=== PATIENT | male | born 1965 | race Two or more races ===

== ENCOUNTER 2024-08-28 21:04 | Emergency (ER) | payer MEDICAID, OTHER ==
[~2024-08-28] VITALS: Ht 170.2 cm; Wt 68.1 kg
--- NOTE | 2024-08-28 21:37 | ED.PDOC ---
History of Present Illness HPI Comments 60 year old male came to ER via EMS for headaches. Patient has been having throbbing frontal headaches, non radiating for the past 2 days that progressively worsened today. Noted to be nauseated but denies any vomiting, denies any chest pains or shortness of breath. Denies any dizziness, slurring of speech or unilateral weakness/ numbness. Patient took Tramadol but offered no relief. Blood pressure upon arrival was 174/103 mmHg patient has past medical history of thyroid issues. Denied history of hypertension, blood thinner use. No head injury. He stated this is the worst headache that he has ever had. It is the headache began in worsened gradually. Denies sudden onset of headache. Chief Complaint: Headache Time Seen by MD: 21:27 Reviewed Notes: Nurses Notes Allergies: Coded Allergies: Bacitracin (Verified Allergy, Unknown, 08/28/24) Neomycin (Verified Allergy, Unknown, 08/28/24) Polymyxin B (Verified Allergy, Unknown, 08/28/24) Information Source: Patient Mode of Arrival: Ambulatory Severity: Moderate Review of Systems REVIEW OF SYSTEMS: No fever, no chills, or fatigue HEENT: No sore throat, no earache, no congestion, no neck pain. Cardiac: No chest pain. No palpitations. Lungs: No shortness of breath, no cough. GI: No nausea, no vomiting, no diarrhea, no constipation, no abdominal pain : No dysuria, frequency, or urgency. No hematuria. Musculoskeletal: No joint pain , no joint swelling, no extremity edema. Skin: No rash, no itching. Neuro: (+) headache, no dizziness, no weakness Vital Signs Vital Signs Date Time Temp Pulse Resp B/P (MAP) Pulse Ox O2 Delivery O2 Flow Rate FiO2 08/29/24 00:15 98.9 78 15 129/68 (88) 95 98.9 08/28/24 23:40 Room Air* 0 21 Physical Exam General: Awake, alert and oriented. No acute distress. Skin: Skin in warm, dry and intact. Appropriate color for ethnicity. Nailbeds pink with no cyanosis. HEENT: The head is normocephalic and atraumatic. Conjunctivae are clear without exudates or hemorrhage. Sclera is non-icteric. EOM are intact. PERRLA No signs of nystagmus. Eyelids are normal in appearance without swelling or lesions. Oral mucosa is pink and moist Neck: The neck is supple with normal range of motion. No JVD. Cardiac: Heart rate and rhythm are normal. No murmurs, gallops, or rubs are auscultated. Respiratory: No signs of respiratory distress. Lung sounds are clear in all lobes bilaterally without rales, ronchi, or wheezes. Abdominal: Abdomen is soft, non-tender without distention. Bowel sounds are present and normoactive in all four quadrants. Extremities: Upper and lower extremities are atraumatic in appearance without deformity or edema. Neurological: The patient is awake, alert and oriented to person, place, and time with normal speech. Speech is clear. There is no facial asymmetry. Sensation symmetric in the face. Patient reports chronic dullness to sensation in the upper extremity. Normal veqbhd-do-hsmy test bilaterally. Minimally Psychiatric: Appropriate mood and affect. Good judgement and insight. No visual or auditory hallucinations. Past Medical History Past Medical History (Other): Chronic pain syndrome Surgical History: Denies all surgeries Family History Family History: Reviewed,noncontributory to illness Social History Smoker: Non-Smoker Alcohol: Denies ETOH Use Drugs: Denies Drug Use Lives In: Home Was a procedure done? Was a procedure done?: No Differential Dx Considerations may include: Anemia, electrolyte imbalance, migraine headaches, CVA, intracranial hemorrhage, TIA, hypertensive urgency X-Ray, Labs, Meds, VS Vital Signs Date Time Temp Pulse Resp B/P (MAP) Pulse Ox O2 Delivery O2 Flow Rate FiO2 08/29/24 00:15 98.9 78 15 129/68 (88) 95 98.9 08/28/24 23:43 73 135/73 08/28/24 23:40 98.7 79 17 135/73 (93) 97 98.7 08/28/24 23:40 79 17 97 Room Air* 0 21 08/28/24 22:47 16 99 Room Air* 0 21 08/28/24 21:07 66 08/28/24 21:07 97.2 84 18 174/101 (125) 100 Lab Test 08/28/24 23:41 08/28/24 23:30 08/28/24 21:58 Range/Units POC Glucose 170 H 70-106 mg/dl Levetiracetam Level Pending White Blood Count 11.1 H 4.4-10.8 10^3/uL Red Blood Count 5.15 4.5-5.90 10^6/uL Hemoglobin 15.5 13.5-17.5 g/dL Hematocrit 46.6 41.0-53.0 % Mean Corpuscular Volume 90.6 80.0-100.0 fL Mean Corpuscular Hemoglobin 30.1 28.0-32.0 pg Mean Corpuscular Hemoglobin Concent 33.3 32.0-36.0 g/dL Red Cell Distribution Width 13.8 11.8-14.3 % Platelet Count 245 140-450 10^3/uL Mean Platelet Volume 9.1 6.9-10.8 fL Neutrophils (%) (Auto) 63.6 37.0-80.0 % Lymphocytes (%) (Auto) 26.2 10.0-50.0 % Monocytes (%) (Auto) 6.6 0.0-12.0 % Eosinophils (%) (Auto) 3.1 0.0-7.0 % Basophils (%) (Auto) 0.5 0.0-2.0 % Neutrophils # (Auto) 7.1 1.6-8.6 10 ^3/uL Lymphocytes # (Auto) 2.9 0.4-5.4 10 ^3/uL Monocytes # (Auto) 0.7 0-1.3 10 ^3/uL Eosinophils # (Auto) 0.3 0-0.8 10 ^3/uL Basophils # (Auto) 0.1 0-0.2 10 ^3/uL Nucleated Red Blood Cells 0.0 % Sodium Level 137 136-145 mmol/L Potassium Level 4.0 3.5-5.1 mmol/L Chloride Level 100 98-107 mmol/L Carbon Dioxide Level 27 20-31 mmol/L Anion Gap 10 5-15 Blood Urea Nitrogen 17 9-23 mg/dL Creatinine 0.91 0.700-1.30 mg/dL Glomerular Filtration Rate Calc 96 >90 mL/min BUN/Creatinine Ratio 18.7 10.0-20.0 Serum Glucose 127 H 74-106 mg/dL Calcium Level 9.7 8.7-10.4 mg/dL Magnesium Level 2.0 1.6-2.6 mg/dL Total Bilirubin 0.3 0.2-1.0 mg/dL Aspartate Amino Transferase (AST) 21 13-40 U/L Alanine Aminotransferase (ALT) 20 7-40 U/L Alkaline Phosphatase 58 46-116 U/L Total Protein 7.5 5.7-8.2 g/dL Albumin 4.5 3.2-4.8 g/dL Current Medications Medications (Trade) Dose Ordered Sig/Jero Route Start Time Stop Time Status Last Admin Sodium Chloride 1,000 ml @ 1,000 mls/hr Q1H ONCE IV 08/28/24 22:00 08/28/24 22:59 DC 08/28/24 22:29 Ketorolac Tromethamine (Toradol Injection) 30 mg ONCE ONCE IV 08/28/24 22:00 08/28/24 22:01 DC 08/28/24 22:29 Metoclopramide HCl (Reglan Injection) 10 mg ONCE ONCE IV 08/28/24 22:00 08/28/24 22:01 DC 08/28/24 22:29 Diphenhydramine HCl (Benadryl Injection) 25 mg ONCE ONCE IV 08/28/24 22:00 08/28/24 22:01 DC 08/28/24 22:29 Magnesium Sulfate/ Dextrose 100 ml @ 200 mls/hr ONCE ONCE IV 08/28/24 22:00 08/28/24 22:29 DC 08/28/24 22:37 Levetiracetam 100 ml @ 400 mls/hr ONCE ONCE IV 08/28/24 23:30 08/28/24 23:44 DC 08/28/24 23:43 CT HEAD WITHOUT CONTRAST INDICATION: Severe Headache COMPARISON: None TECHNIQUE: CT of the head without intravenous contrast. RADIATION DOSE: CTDIvol: mGy, DLP: mGy*cm FINDINGS: There is subarachnoid hemorrhage in the posterior fossa/prepontine cistern, basal cisterns, and bilateral sylvian figures greater on the right side. No parenchymal hemorrhage. No evidence of infarct, edema, mass effect, midline shift, herniation or hydrocephalus. Ventricles and sulci are normal. Michele-white differentiation is normal. Visualized paranasal sinuses and mastoid air cells are unremarkable. Soft tis sues and osseous structures are unremarkable. IMPRESSION: Subarachnoid hemorrhage concerning for ruptured aneurysm. CTA brain recommended. Time of 1ST Reevaluation: 21:20 Reevaluation 1ST: Unchanged Patient Education/Counseling: Diagnosis, Treatment Family Education/Counseling: No Family Present Departure 1 Departure Time of Disposition: 23:59 Impression: Primary Impression: Subarachnoid hemorrhage Disposition: 02 SHORT TERM HOSPITAL Condition: Stable Comments 59-year-old male with subarachnoid hemorrhage. Patient is neurologically intact, blood pressure is well-controlled. Case was discussed with Dr. Saldivar at 23:54 at [facility] who accepts patient for transfer for neurosurgery services. Patient remained stable during the ED observation. Extensive evaluation was performed in attempt to identify or rule out: (See differential diagnosis section) The following tests were ordered, and results were reviewed by me and discussed with the patient and his family at bedside: (See diagnostic results section) The following test were independently interpreted by me: EKG I reviewed and agreed with the following test results read by other providers: CT head without contrast I reviewed the following notes from the pt's past medical encounters: (None available at this time) Additional information was gathered from interviewing the following independent historians: Patient's family at bedside Discussion of management or test interpretation with external physician/other qualified health palliative care specialist: Dr. Saldivar Addressed an acute or chronic illness that poses a threat to life or bodily function: Subarachnoid hemorrhage Decision regarding hospitalization or escalation of hospital level of care: Risk and benefits of admission for further treatment of patient's condition was considered. Due to patient's current clinical condition, high risk of decline and poor outcome if discharged and need for further inpatient management and monitoring, patient will be admitted to the hospital. Drug therapy requiring intensive monitoring for toxicity: IV Keppra Parenteral controlled substances: N/A Decision regarding elective major surgery with identified patient or procedure risk factors: N/A Decision regarding emergency major surgery: N/A Decision not to resuscitate or to de-escalate care because of poor prognosis: N/A Diagnosis or treatment significantly limited by social determinants of health: N/A Critical Care Note Critical Care Time?: Yes (35 min-critical care time only) Critical care comment: Subarachnoid hemorrhage Due to a high probability of clinically significant, life threatening deterioration, the patient required my highest level of preparedness to intervene emergently and I personally spent this critical care time directly and personally managing the patient. This critical care time included obtaining a history; examining the patient; pulse oximetry; ordering and review of studies; arranging urgent treatment with development of a management plan; evaluation of patient's response to treatment; frequent reassessment; and, discussions with other providers. This critical care time was performed to assess and manage the high probability of imminent, life-threatening deterioration that could result in multi-organ failure. It was exclusive of separately billable procedures and treating other patients and teaching time. Please see my other sections and the rest of the note for further information on patient assessment and treatment. Stability Stability form required: No Heart Score Heart Score: Heart Score Response (Comments) Value History N/A 0 EKG N/A 0 Age N/A 0 Risk Factors N/A 0 Troponin N/A 0 Total 0 I personally scribed for NAYELI BRITTON MD ([email or web address]) on 08/28/24 at 21:36. Electronically submitted by Rosales Shepherd (JOLENECole Martin). I personally scribed for NAYELI BRITTON MD ([email or web address]) on 08/28/24 at 23:20. Electronically submitted by Rosales Shepherd (JOLENECole Martin). I personally scribed for NAYELI BRITTON MD ([email or web address]) on 08/28/24 at 23:22. Electronically submitted by Rosales Shepherd (JOLENECole Martin). NAYELI BRITTON MD Aug 28, 2024 21:36
[2024-08-28 22:16] LABS: Basophils # (auto) 0.1 10 ^3/uL (0-0.2); Basophils % (auto) 0.5 % (0.0-2.0); Eosinophils # (auto) 0.3 10 ^3/uL (0-0.8); Eosinophils % (auto) 3.1 % (0.0-7.0); Hematocrit 46.6 % (41.0-53.0); Hemoglobin 15.5 g/dL (13.5-17.5); Lymphocytes # (auto) 2.9 10 ^3/uL (0.4-5.4); Lymphocytes % (auto) 26.2 % (10.0-50.0); Mean Corpuscular Hemoglobin 30.1 pg (28.0-32.0); Mean Corpuscular Hgb Conc. 33.3 g/dL (32.0-36.0); Mean Corpuscular Volume 90.6 fL (80.0-100.0); Monocytes # (auto) 0.7 10 ^3/uL (0-1.3); Monocytes % (auto) 6.6 % (0.0-12.0); Neutrophils # (auto) 7.1 10 ^3/uL (1.6-8.6); Neutrophils % (auto) 63.6 % (37.0-80.0); Platelet Count (auto) 245 10^3/uL (140-450); Red Blood Cells 5.15 10^6/uL (4.5-5.90); Red Cell Distribution Width 13.8 % (11.8-14.3); White Blood Cell 11.1 10^3/uL (4.4-10.8)
[2024-08-28] MEDS: METOCLOPRAMIDE HCL 5MG/ml INJ 2ml VIAL IV ONE (22:29)
[2024-08-28] MEDS: SODIUM CHLORIDE 0.9% 1,000 ML IV ONE (22:29)
[2024-08-28] MEDS: diphenhdrAMINE HCL 50 MG/1 ML VL IV ONE (22:29)
[2024-08-28] MEDS: KETOROLAC TROMETH 30 MG/ML 1ML VIAL IV ONE (22:29)
[2024-08-28 22:33] LABS: Alanine Aminotransferase 20 U/L (7-40); Albumin 4.5 g/dL (3.2-4.8); Alkaline Phosphatase 58 U/L (46-116); Anion Gap 10 (5-15); Aspartate Aminotransferase 21 U/L (13-40); BUN/Creatinine Ratio 18.7 (10.0-20.0); Blood Urea Nitrogen 17 mg/dL (9-23); Calcium 9.7 mg/dL (8.7-10.4); Carbon Dioxide 27 mmol/L (20-31); Chloride 100 mmol/L (98-107); Sodium 137 mmol/L (136-145); Total Protein 7.5 g/dL (5.7-8.2)
[2024-08-28 22:34] LABS: Bilirubin, Total 0.3 mg/dL (0.2-1.0); Glucose 127 mg/dL (74-106)
[2024-08-28] MEDS: MAGNESIUM SULFATE 1GM/100ML 100 ML IV ONE (22:37)
[2024-08-28 22:47] VITALS: RESP 16; O2SAT 99
[2024-08-28] MEDS: IOHEXOL 350 MG/ML 100ML IJ ONE (22:58)
--- NOTE | 2024-08-28 23:16 | DVH ---
CT HEAD WITHOUT CONTRAST INDICATION: Severe Headache COMPARISON: None TECHNIQUE: CT of the head without intravenous contrast. RADIATION DOSE: CTDIvol: mGy, DLP: mGy*cm FINDINGS: There is subarachnoid hemorrhage in the posterior fossa/prepontine cistern, basal cisterns, and bilat eral sylvian figures greater on the right side. No parenchymal hemorrhage. No evidence of infarct, edema, mass effect, midline shift, herniation or hydrocephalus. Ventricles an d sulci are normal. Michele-white differentiation is normal. Visualized paranasal sinuses and mastoid air cells are unremarkable. Soft tissues and osseous structu res are unremarkable. IMPRESSION: Subarachnoid hemorrhage concerning for ruptured aneurysm. CTA brain recommended.
[2024-08-28 23:40] VITALS: PULSE 79; RESP 17; O2SAT 97
[2024-08-28] MEDS: LABETALOL HCL 20 MG/4 ML VL IV ONE (23:43)
[2024-08-28] MEDS: levETIRAcetam 1000 mg/100ml 100 ML IV ONE (23:43)
[2024-08-29 00:15] VITALS: BP 129/68; PULSE 78; RESP 15; TEMP 98.9; O2SAT 95
--- NOTE | 2024-08-29 01:00 | DVH ---
INDICATION: Subarachnoid hemorrhage COMPARISON: None TECHNIQUE: CTA head without and with intravenous contrast. CTA neck with intravenous contrast. 3D image postprocessing was performed on a dedicated workstation and images were used for interpretation and reporting. Radiation Dose Information: CT Dose: CTDI volume is 22 mGy. Dose-length product is 883 mGy*cm FINDINGS: CTA head: There is normal enhancement of the visualized distal internal carotid, anterior and middle cerebral a rteries. There is a normal anterior communicating artery complex. There are bilateral posterior com municating arteries. The vertebral, basilar, cerebellar and posterior cerebral arteries are within n ormal limits. The early parenchymal enhancement is grossly unremarkable. The visualized intracrania l venous structures are grossly unremarkable. CTA neck: The visualized thoracic aortic arch and proximal great vessels are unremarkable. The left common, internal and external carotid arteries are within normal limits. The right common, internal and external carotid arteries are within normal limits. The cervical segments of the right and left vertebral arteries are within normal limits. The limited visualized lung apices are clear. Subcentimeter calcified pulmonary nodule in the right u pper lobe. The surrounding soft tissues and osseous structures are otherwise unremarkable. IMPRESSION: No evidence of hemodynamically significant intracranial stenosis, proximal occlusion or aneurysm. Cerda ited evaluation of the [id number] due to motion artifact. Basilar subarachnoid hemorrhage which was better assessed on same day CT brain.. No evidence of hemodynamically significant cervical stenosis or dissection. All CT scans at this medical facility are performed using dose modulation techniques as appropriate t o a performed exam including the following: Automated exposure control was utilized; adjustment of th e MA and/or KV according to patient size; and use of iterative reconstruction technique.
--- NOTE | 2024-08-29 15:17 | ECG ---
[facility] Test Date: 2024-08-28 Test Time: 21:07:38 Pat Name: DARYN BAKER Department: ER Room: Gender: M [employer] Department Chair: ER : 1965 Requested By: NAYELI BRITTON Order Number: [id number] Reading MD: Maik Chaney Measurements Intervals [place] Rate: 66 P: 67 MD: 150 QRS: 4 QRSD: 122 T: 23 QT: 417 QTc: 437 Interpretive Statements Sinus rhythm Probable left atrial enlargement IVCD, consider atypical RBBB Electronically Signed On 08-30-2024 19:13:22 PDT by Maik Chaney Please click the below link to view image of tracing.
== END 2024-08-29 00:23 | disposition short-term general hospital (02) ==
LOC: EDBD 21:04 → ER 21:04
DX: I60.9 Nontraumatic subarachnoid hemorrhage, unspecified (principal); G89.4 Chronic pain syndrome; Z88.8 Allergy status to other drugs, medicaments and biological substances; Z79.899 Other long term (current) drug therapy
CPT/HCPCS: 36415; 70450; 70496; 70498; 80053; 82542; 82962; 83735; 85025; 93005; 96365; 96367; 96375; 99291; J1200; J1885; J1953; J2765; J3475; J7030; Q9967